=== PATIENT | female | born 1995 | race Caucasian/White ===

== ENCOUNTER 2016-09-27 11:48 | Inpatient (IN) | payer MEDICAID ==
[~2016-09-27] VITALS: Ht 147.3 cm; Wt 51.0 kg
[2016-09-27] VITALS (7 sets, daily range): BP systolic 118–149; BP diastolic 59–87
[~2016-09-27 11:48] MED LIST: LEVA0.6310; MUPI2OIN10; NUTREN
[2016-09-27] MEDS ORDERED: ALBUTEROL SULF 2.5 MG/0.5ML(0.5%) NEB SOLN NEB ONE (15:45)
[2016-09-27] MEDS ORDERED: IPRATROPIUM BROM 0.5 MG/2.5ML INH SOL NEB ONE (15:45)
[2016-09-27 17:22] LABS: Basophils # (auto) 0 uL; Basophils % (auto) 0.2 % (0.0-2.0); Eosinophils # (auto) 0.1 uL; Eosinophils % (auto) 1.4 % (0.0-7.0); Hematocrit 43.1 % (36.0-46.0); Lymphocytes % (auto) 11.5 % (10.0-50.0); Mean Corpuscular Hemoglobin 31.1 pg (28.0-32.0); Mean Corpuscular Hgb Conc. 32.5 g/dL (32.0-36.0); Mean Corpuscular Volume 95.6 fL (80.0-100.0); Monocytes # (auto) 0.9 uL; Monocytes % (auto) 10.6 % (0.0-12.0); Neutrophils # (auto) 6.4 uL; Neutrophils % (auto) 76.3 % (37.0-80.0); Platelet Count (auto) 235 10^3/uL (140-450); Red Cell Distribution Width 13.3 % (11.6-16.0); White Blood Cell 8.4 10^3/uL (4.4-10.8)
[2016-09-27 17:35] LABS: INR 1.06 (0.9-1.15); Partial Thromboplastin Time 29.6 sec (22.64-33.71); Prothrombin Time 10.9 sec (9.37-12.3)
[2016-09-27 17:38] LABS: Albumin 3.9 g/dL (3.4-5.0); Magnesium 2.3 mg/dL (1.6-2.6); Potassium 3.5 mmol/L (3.5-5.1)
[2016-09-27 17:40] LABS: Bilirubin, Total 0.6 mg/dL (0.2-1.0); Total Protein 8.5 g/dL (6.4-8.2)
[2016-09-27 17:44] LABS: Lactic Acid 4.8 mmol/L (0.4-2.0)
[2016-09-27] MEDS ORDERED: SODIUM CHLORIDE 0.9% 1,000 ML IV ONE (17:45)
[2016-09-27 17:48] LABS: REFLEX LACTIC ACID YES OR NO YES
[2016-09-27] MEDS ORDERED: cefTRIAXone 1GM/50ML D5W 50 ML IV ONE (18:15)
[2016-09-27] MEDS ORDERED: LORazepam 2MG/ML-1ML VIAL IV PRN (18:15)
[2016-09-27] MEDS ORDERED: MORPHINE SULF INJ 2 MG/ML SYRINGE 1ML IV PRN ×2 (18:15)
[2016-09-27] MEDS ORDERED: LACTULOSE 20Gm/30ML SOLN PO PRN (18:15)
[2016-09-27] MEDS ORDERED: OSELTAMIVIR 75 MG CAP PO ONE (18:15)
[2016-09-27] MEDS ORDERED: ALBUTEROL SULF 2.5 MG/0.5ML(0.5%) NEB SOLN NEB PRN (18:15)
[2016-09-27] MEDS ORDERED: ONDANSETRON HCL 4 MG/2 ML VIAL IV PRN (18:15)
[2016-09-27] MEDS ORDERED: NITROGLYCERIN 0.4 MG SL TAB SL PRN (18:15)
[2016-09-27] MEDS ORDERED: methylPREDNISolone SOD SUCC 125 MG/2 ML VL IV ONE (18:30)
[2016-09-27 18:56] LABS: Urine Bilirubin Negative (Negative); Urine Blood Negative /uL (Negative); Urine Color Yellow (Yellow); Urine Glucose Normal (Normal); Urine Mucus FEW (None Seen); Urine Nitrite Negative (Negative); Urine RBC 1 /hpf (0 - 4); Urine Squamous Epithelial Cell FEW /hpf (<5); Urine Urobilinogen >12.0 mg/dL (Negative); Urine pH 7.5 (5.0-8.0)
[2016-09-27] MEDS: ENOXAPARIN SOD 30 MG/0.3 ML SYRINGE SC SCH (19:01)
[2016-09-27 19:14] LABS: Urine Ketone 1+ (Negative)
[2016-09-27] MEDS: AZITHROMYCIN 500MG/D5W 250ML 250 ML IV SCH (20:23)
[2016-09-28] VITALS (38 sets, daily range): BP systolic 107–163; BP diastolic 57–93
[2016-09-28] MEDS: SODIUM CHLORIDE 0.9% 1,000 ML IV SCH ×2 (00:15→18:02)
[2016-09-28] MEDS: methylPREDNISolone SOD SUCC 40 MG/ML VL IV SCH ×4 (00:16→22:53)
[2016-09-28] MEDS: ALBUTEROL SULF 2.5 MG/0.5ML(0.5%) NEB SOLN NEB SCH ×4 (01:22→18:40)
[2016-09-28 04:05] LABS: Basophils # (auto) 0 uL; Basophils % (auto) 0.3 % (0.0-2.0); Eosinophils # (auto) 0 uL; Eosinophils % (auto) 0.1 % (0.0-7.0); Hematocrit 39.5 % (36.0-46.0); Hemoglobin 12.8 g/dL (12.2-16.2); Lymphocytes # (auto) 0.3 uL; Lymphocytes % (auto) 4.9 % (10.0-50.0); Mean Corpuscular Hemoglobin 31.1 pg (28.0-32.0); Mean Corpuscular Hgb Conc. 32.4 g/dL (32.0-36.0); Mean Corpuscular Volume 96.1 fL (80.0-100.0); Mean Platelet Volume 10.7 fL (7.4-10.4); Monocytes # (auto) 0.1 uL; Monocytes % (auto) 2.3 % (0.0-12.0); Neutrophils % (auto) 92.4 % (37.0-80.0); Platelet Count (auto) 218 10^3/uL (140-450); Red Cell Distribution Width 13.2 % (11.6-16.0); White Blood Cell 5.4 10^3/uL (4.4-10.8)
[2016-09-28 04:18] LABS: Albumin 3.1 g/dL (3.4-5.0); Calcium 7.9 mg/dL (8.5-10.1)
[2016-09-28 04:35] LABS: Bilirubin, Total 0.4 mg/dL (0.2-1.0)
[2016-09-28] MEDS ORDERED: SODIUM CHLORIDE 0.9 % NEB SOLN 3ML NEB ONE (05:30)
[2016-09-28] MEDS ORDERED: OSELTAMIVIR 75 MG CAP PO SCH (10:00)
[2016-09-28] MEDS: cefTRIAXone 1GM/50ML D5W 50 ML IV SCH (10:37)
[2016-09-28] MEDS: ENOXAPARIN SOD 30 MG/0.3 ML SYRINGE SC SCH (10:42)
[2016-09-28] MEDS: AZITHROMYCIN 500MG/D5W 250ML 250 ML IV SCH (10:43)
[2016-09-28] MEDS ORDERED: Nutren 1.0/Fiber 8 ounces GT SCH (15:15)
[2016-09-28] MEDS: NUTREN GT SCH (21:57)
[2016-09-29] MEDS: ALBUTEROL SULF 2.5 MG/0.5ML(0.5%) NEB SOLN NEB SCH ×4 (00:40→19:10)
[2016-09-29] MEDS ORDERED: FUROSEMIDE 40 MG/4 ML VIAL ONE (00:56)
[2016-09-29] MEDS ORDERED: FUROSEMIDE 40 MG/4 ML VIAL IV ONE ×2 (01:00→09:30)
[2016-09-29 04:00] VITALS: BP 126/76
[2016-09-29 06:19] LABS: DEFINITIVE VIEW TRANSMISSION; Hematocrit 41.9 % (36.0-46.0); Hemoglobin 13.7 g/dL (12.2-16.2); Mean Corpuscular Hemoglobin 31.5 pg (28.0-32.0); Mean Corpuscular Hgb Conc. 32.7 g/dL (32.0-36.0); Mean Corpuscular Volume 96.1 fL (80.0-100.0); Mean Platelet Volume 10.7 fL (7.4-10.4); Platelet Count (auto) 279 10^3/uL (140-450); Red Cell Distribution Width 13.3 % (11.6-16.0); SUSPECT VIEW TRANSMISSION; White Blood Cell 7.9 10^3/uL (4.4-10.8)
[2016-09-29 06:36] LABS: Potassium 3.3 mmol/L (3.5-5.1)
[2016-09-29 06:42] LABS: BUN/Creatinine Ratio 37.9; Calcium 9.1 mg/dL (8.5-10.1)
[2016-09-29 07:19] LABS: Metamyelocytes % 0; Myelocytes % 0; Promyelocytes % 0; Reactive Lymphocytes 0
[2016-09-29 07:25] LABS: B-Type Natriuretic Peptide 75.48 pg/mL (0-100)
[2016-09-29] MEDS: SODIUM CHLORIDE 0.9% 1,000 ML IV SCH (07:33)
[2016-09-29 07:35] LABS: Temperature: 22.4 C (20.0-25.0)
[2016-09-29 07:59] VITALS: BP 128/71
[2016-09-29 08:02] LABS: Platelet Estimate Adequate; RBC Morphology Normal
[2016-09-29] MEDS: cefTRIAXone 1GM/50ML D5W 50 ML IV SCH (08:47)
[2016-09-29] MEDS ORDERED: POTASSIUM CHL 10% (20 MEQ/15ML) ORAL SOLN PEG ONE (09:30)
[2016-09-29] MEDS: methylPREDNISolone SOD SUCC 40 MG/ML VL IV SCH ×2 (10:17→22:56)
[2016-09-29] MEDS: AZITHROMYCIN 500MG/D5W 250ML 250 ML IV SCH (10:17)
[2016-09-29] MEDS: ENOXAPARIN SOD 30 MG/0.3 ML SYRINGE SC SCH (10:17)
[2016-09-29 12:00] VITALS: BP 119/77
[2016-09-29] MEDS ORDERED: SODIUM CHLORIDE 0.9% 1,000 ML IV SCH (15:01)
[2016-09-29 16:00] VITALS: BP 121/74
[2016-09-29] MEDS ORDERED: DEXTROSE (50%) 50ML SYRG IV PRN (16:00)
[2016-09-29] MEDS ORDERED: InsuLIN REG 1unit/0.01ml Soln (100units/ml) SC SCH (16:00)
[2016-09-29] MEDS ORDERED: POTASSIUM CHL 20MEQ/100ML 100 ML IV ONE (16:00)
[2016-09-29] MEDS: NUTREN GT SCH (17:23)
[2016-09-29] MEDS: ACCU-CHEK COMFORT CURVE STRIP VI SCH ×2 (18:10→22:00)
[2016-09-29 20:00] VITALS: BP 132/80
[2016-09-29] MEDS: InsuLIN REG 1unit/0.01ml Soln (100units/ml) SC SCH (22:00)
[2016-09-30] VITALS (7 sets, daily range): BP systolic 121–141; BP diastolic 67–75
[2016-09-30] MEDS: ALBUTEROL SULF 2.5 MG/0.5ML(0.5%) NEB SOLN NEB SCH ×2 (00:30→06:45)
[2016-09-30] MEDS ORDERED: FUROSEMIDE 20 MG/2 ML VIAL IV ONE (05:00)
[2016-09-30 06:12] LABS: Basophils # (auto) 0 uL; DEFINITIVE VIEW TRANSMISSION; Eosinophils # (auto) 0 uL; Hematocrit 48.4 % (36.0-46.0); Hemoglobin 15.1 g/dL (12.2-16.2); Lymphocytes # (auto) 0.4 uL; Lymphocytes % (auto) 5.4 % (10.0-50.0); Mean Corpuscular Hemoglobin 30.6 pg (28.0-32.0); Mean Corpuscular Hgb Conc. 31.2 g/dL (32.0-36.0); Mean Corpuscular Volume 97.9 fL (80.0-100.0); Mean Platelet Volume 10.5 fL (7.4-10.4); Monocytes # (auto) 0.7 uL; Monocytes % (auto) 9.6 % (0.0-12.0); Neutrophils # (auto) 6.4 uL; Platelet Count (auto) 275 10^3/uL (140-450); Red Cell Distribution Width 13.9 % (11.6-16.0); SUSPECT VIEW TRANSMISSION; White Blood Cell 7.5 10^3/uL (4.4-10.8)
[2016-09-30 06:38] LABS: BUN/Creatinine Ratio 47.5; Calcium 9.1 mg/dL (8.5-10.1)
[2016-09-30] MEDS: ACCU-CHEK COMFORT CURVE STRIP VI SCH ×3 (08:03→22:00)
[2016-09-30] MEDS: cefTRIAXone 1GM/50ML D5W 50 ML IV SCH (08:28)
[2016-09-30] MEDS: InsuLIN REG 1unit/0.01ml Soln (100units/ml) SC SCH ×3 (08:29→22:00)
[2016-09-30] MEDS ORDERED: ALBUTEROL SULF 2.5 MG/0.5ML(0.5%) NEB SOLN NEB PRN (09:15)
[2016-09-30] MEDS: methylPREDNISolone SOD SUCC 40 MG/ML VL IV SCH ×2 (09:46→23:31)
[2016-09-30] MEDS: BACLOFEN 10 MG TAB PO SCH ×2 (09:46→23:31)
[2016-09-30] MEDS: FUROSEMIDE 40 MG/4 ML VIAL IV SCH (09:46)
[2016-09-30] MEDS: ENOXAPARIN SOD 30 MG/0.3 ML SYRINGE SC SCH (09:46)
[2016-09-30] MEDS: AZITHROMYCIN 500MG/D5W 250ML 250 ML IV SCH (09:46)
[2016-09-30] MEDS ORDERED: LEVALBUTEROL HCL 1.25 MG/0.5 ML NEB SOLN NEB PRN (10:42)
[2016-09-30] MEDS ORDERED: LEVALBUTEROL HCL 1.25 MG/0.5 ML NEB SOLN NEB SCH (12:00)
[2016-09-30] MEDS: ACETAMINOPHEN 650 mg PER 20 mL UD GT PRN (16:13)
[2016-09-30] MEDS: LEVALBUTEROL HCL 1.25 MG/0.5 ML NEB SOLN NEB SCH (22:21)
[2016-10-01 00:28] VITALS: BP 125/77
[2016-10-01 04:00] VITALS: BP 148/83
[2016-10-01] MEDS: ACETAMINOPHEN 650 mg PER 20 mL UD GT PRN (04:15)
[2016-10-01 06:24] LABS: BUN/Creatinine Ratio 57.4; Calcium 9.5 mg/dL (8.5-10.1); Potassium 3.9 mmol/L (3.5-5.1)
[2016-10-01] MEDS: InsuLIN REG 1unit/0.01ml Soln (100units/ml) SC SCH ×3 (07:00→21:53)
[2016-10-01 08:00] VITALS: BP 133/75
[2016-10-01] MEDS: cefTRIAXone 1GM/50ML D5W 50 ML IV SCH (09:01)
[2016-10-01] MEDS: LEVALBUTEROL HCL 1.25 MG/0.5 ML NEB SOLN NEB SCH ×2 (09:16→22:34)
[2016-10-01] MEDS: FUROSEMIDE 40 MG/4 ML VIAL IV SCH (11:11)
[2016-10-01] MEDS: methylPREDNISolone SOD SUCC 40 MG/ML VL IV SCH ×2 (11:12→22:00)
[2016-10-01] MEDS: AZITHROMYCIN 500MG/D5W 250ML 250 ML IV SCH (11:12)
[2016-10-01] MEDS: ENOXAPARIN SOD 30 MG/0.3 ML SYRINGE SC SCH (11:12)
[2016-10-01] MEDS: BACLOFEN 10 MG TAB PO SCH ×2 (11:12→22:00)
[2016-10-01 12:00] VITALS: BP 111/61
[2016-10-01] MEDS: ACCU-CHEK COMFORT CURVE STRIP VI SCH ×2 (14:00→21:53)
[2016-10-01] MEDS: NUTREN GT SCH (17:42)
[2016-10-01 20:00] VITALS: BP 145/84
[2016-10-02] VITALS: BP 116/68
[2016-10-02 04:00] VITALS: BP 132/79
[2016-10-02] MEDS ORDERED: LEVALBUTEROL HCL 1.25 MG/3 ML NEB NEB SCH (06:00)
[2016-10-02] MEDS: InsuLIN REG 1unit/0.01ml Soln (100units/ml) SC SCH ×3 (06:00→22:00)
[2016-10-02] MEDS: ACCU-CHEK COMFORT CURVE STRIP VI SCH ×3 (06:00→22:00)
[2016-10-02 08:00] VITALS: BP 114/68
[2016-10-02] MEDS: methylPREDNISolone SOD SUCC 40 MG/ML VL IV SCH ×2 (10:19→22:13)
[2016-10-02] MEDS: BACLOFEN 10 MG TAB PO SCH ×2 (10:19→22:15)
[2016-10-02] MEDS: ENOXAPARIN SOD 30 MG/0.3 ML SYRINGE SC SCH (10:20)
[2016-10-02] MEDS: cefTRIAXone 1GM/50ML D5W 50 ML IV SCH (10:20)
[2016-10-02] MEDS: FUROSEMIDE 40 MG/4 ML VIAL IV SCH (10:21)
[2016-10-02] MEDS: AZITHROMYCIN 500MG/D5W 250ML 250 ML IV SCH (11:13)
[2016-10-02 12:00] VITALS: BP 123/77
[2016-10-02] MEDS ORDERED: PIPERACILLIN-TAZOB 3.375GM/D5W100ML IV SCH (12:00)
[2016-10-02] MEDS ORDERED: ACETYLCYSTEINE 10 %(100MG/ML) SOL 4ML NEB ONE (12:00)
[2016-10-02] MEDS: PIPERACILLIN-TAZOB 3.375GM/D5W100ML IV SCH ×2 (14:00→20:40)
[2016-10-02 15:58] VITALS: BP 117/66
[2016-10-02] MEDS: NUTREN GT SCH (17:12)
[2016-10-02 20:00] VITALS: BP 140/87
[2016-10-02] MEDS: ACETYLCYSTEINE 10 %(100MG/ML) SOL 4ML NEB SCH (22:58)
[2016-10-02] MEDS: TOBRAMYCIN 300 MG/5 ML NEB SOLN NEB SCH (22:59)
[2016-10-02] MEDS: LEVALBUTEROL HCL 1.25 MG/3 ML NEB NEB SCH (22:59)
[2016-10-03] VITALS: BP 113/83
[2016-10-03] MEDS: PIPERACILLIN-TAZOB 3.375GM/D5W100ML IV SCH ×4 (03:17→20:24)
[2016-10-03 04:00] VITALS: BP 133/74
[2016-10-03] MEDS: ACCU-CHEK COMFORT CURVE STRIP VI SCH ×3 (06:00→22:00)
[2016-10-03] MEDS: InsuLIN REG 1unit/0.01ml Soln (100units/ml) SC SCH ×3 (06:00→22:45)
[2016-10-03 06:09] LABS: BUN/Creatinine Ratio 83.8; Calcium 9.5 mg/dL (8.5-10.1); Potassium 3.5 mmol/L (3.5-5.1)
[2016-10-03 06:13] LABS: Basophils # (auto) 0 uL; Basophils % (auto) 0.2 % (0.0-2.0); DEFINITIVE VIEW TRANSMISSION; Eosinophils # (auto) 0 uL; Hematocrit 48.6 % (36.0-46.0); Lymphocytes # (auto) 1.4 uL; Lymphocytes % (auto) 22.1 % (10.0-50.0); Mean Corpuscular Hemoglobin 30.6 pg (28.0-32.0); Mean Corpuscular Hgb Conc. 30.8 g/dL (32.0-36.0); Mean Corpuscular Volume 99.3 fL (80.0-100.0); Mean Platelet Volume 10.6 fL (7.4-10.4); Monocytes # (auto) 0.9 uL; Monocytes % (auto) 13.9 % (0.0-12.0); Neutrophils # (auto) 4.1 uL; Neutrophils % (auto) 63.8 % (37.0-80.0); Platelet Count (auto) 270 10^3/uL (140-450); White Blood Cell 6.4 10^3/uL (4.4-10.8)
[2016-10-03 08:00] VITALS: BP 128/79
[2016-10-03] MEDS: ACETYLCYSTEINE 10 %(100MG/ML) SOL 4ML NEB SCH ×2 (09:55→22:50)
[2016-10-03] MEDS: LEVALBUTEROL HCL 1.25 MG/3 ML NEB NEB SCH ×2 (09:55→22:50)
[2016-10-03] MEDS: TOBRAMYCIN 300 MG/5 ML NEB SOLN NEB SCH ×2 (09:56→22:51)
[2016-10-03] MEDS: FUROSEMIDE 40 MG/4 ML VIAL IV SCH (10:02)
[2016-10-03] MEDS: methylPREDNISolone SOD SUCC 40 MG/ML VL IV SCH ×2 (10:02→22:45)
[2016-10-03] MEDS: BACLOFEN 10 MG TAB PO SCH ×2 (10:03→22:45)
[2016-10-03] MEDS: ENOXAPARIN SOD 30 MG/0.3 ML SYRINGE SC SCH (10:03)
[2016-10-03 12:00] VITALS: BP 115/67
[2016-10-03] MEDS: ACETAMINOPHEN 650 mg PER 20 mL UD GT PRN (12:49)
[2016-10-03 16:00] VITALS: BP 113/68
[2016-10-03 20:00] VITALS: BP 115/64
[2016-10-04] VITALS (7 sets, daily range): BP systolic 108–132; BP diastolic 63–87
[2016-10-04] MEDS: PIPERACILLIN-TAZOB 3.375GM/D5W100ML IV SCH ×4 (02:22→19:48)
[2016-10-04] MEDS: InsuLIN REG 1unit/0.01ml Soln (100units/ml) SC SCH ×3 (06:00→22:38)
[2016-10-04] MEDS: ACCU-CHEK COMFORT CURVE STRIP VI SCH ×3 (06:00→21:54)
[2016-10-04] MEDS: ACETYLCYSTEINE 10 %(100MG/ML) SOL 4ML NEB SCH ×2 (07:35→22:08)
[2016-10-04] MEDS: LEVALBUTEROL HCL 1.25 MG/3 ML NEB NEB SCH ×2 (07:35→22:08)
[2016-10-04] MEDS: ENOXAPARIN SOD 30 MG/0.3 ML SYRINGE SC SCH (11:25)
[2016-10-04] MEDS: methylPREDNISolone SOD SUCC 40 MG/ML VL IV SCH ×2 (11:25→21:53)
[2016-10-04] MEDS: BACLOFEN 10 MG TAB PO SCH ×2 (11:25→21:54)
[2016-10-04] MEDS: TOBRAMYCIN 300 MG/5 ML NEB SOLN NEB SCH ×2 (15:25→22:08)
[2016-10-04] MEDS: NUTREN GT SCH (18:26)
[2016-10-05 00:15] VITALS: BP 112/58
[2016-10-05] MEDS: PIPERACILLIN-TAZOB 3.375GM/D5W100ML IV SCH ×4 (01:27→20:28)
[2016-10-05 04:00] VITALS: BP 111/64
[2016-10-05] MEDS: ACETYLCYSTEINE 10 %(100MG/ML) SOL 4ML NEB SCH ×2 (05:45→22:40)
[2016-10-05] MEDS: TOBRAMYCIN 300 MG/5 ML NEB SOLN NEB SCH ×2 (05:45→22:41)
[2016-10-05] MEDS: LEVALBUTEROL HCL 1.25 MG/3 ML NEB NEB SCH ×2 (05:45→22:40)
[2016-10-05] MEDS: ACCU-CHEK COMFORT CURVE STRIP VI SCH ×3 (05:53→21:20)
[2016-10-05] MEDS: InsuLIN REG 1unit/0.01ml Soln (100units/ml) SC SCH ×3 (06:00→22:00)
[2016-10-05 06:57] LABS: BUN/Creatinine Ratio 65.1; Calcium 8.9 mg/dL (8.5-10.1); Potassium 3.7 mmol/L (3.5-5.1)
[2016-10-05 07:17] LABS: Basophils # (auto) 0 uL; Basophils % (auto) 0.2 % (0.0-2.0); DEFINITIVE VIEW TRANSMISSION; Eosinophils # (auto) 0 uL; Eosinophils % (auto) 0.2 % (0.0-7.0); Hematocrit 46.8 % (36.0-46.0); Lymphocytes # (auto) 1.3 uL; Lymphocytes % (auto) 16.2 % (10.0-50.0); Mean Corpuscular Hemoglobin 30.1 pg (28.0-32.0); Mean Corpuscular Volume 100.4 fL (80.0-100.0); Mean Platelet Volume 10.9 fL (7.4-10.4); Monocytes # (auto) 0.7 uL; Monocytes % (auto) 8.6 % (0.0-12.0); Neutrophils # (auto) 5.9 uL; Neutrophils % (auto) 74.8 % (37.0-80.0); Platelet Count (auto) 281 10^3/uL (140-450); Red Cell Distribution Width 14.1 % (11.6-16.0); SUSPECT VIEW TRANSMISSION; White Blood Cell 7.9 10^3/uL (4.4-10.8)
[2016-10-05 08:00] VITALS: BP 108/63
[2016-10-05] MEDS: methylPREDNISolone SOD SUCC 40 MG/ML VL IV SCH ×2 (10:54→21:20)
[2016-10-05] MEDS: ENOXAPARIN SOD 30 MG/0.3 ML SYRINGE SC SCH (10:54)
[2016-10-05] MEDS: BACLOFEN 10 MG TAB PO SCH ×2 (10:54→21:20)
[2016-10-05 12:08] VITALS: BP 109/60
[2016-10-05 15:50] VITALS: BP 125/83
[2016-10-05 20:23] VITALS: BP 111/65
[2016-10-06] VITALS (9 sets, daily range): BP systolic 103–137; BP diastolic 53–70
[2016-10-06] MEDS: PIPERACILLIN-TAZOB 3.375GM/D5W100ML IV SCH ×4 (01:19→20:00)
[2016-10-06] MEDS: ACCU-CHEK COMFORT CURVE STRIP VI SCH ×3 (05:35→21:55)
[2016-10-06] MEDS: InsuLIN REG 1unit/0.01ml Soln (100units/ml) SC SCH ×3 (06:00→21:59)
[2016-10-06 07:09] LABS: BUN/Creatinine Ratio 93.9; Potassium 3.6 mmol/L (3.5-5.1)
[2016-10-06] MEDS: TOBRAMYCIN 300 MG/5 ML NEB SOLN NEB SCH ×2 (08:46→20:38)
[2016-10-06] MEDS: ACETYLCYSTEINE 10 %(100MG/ML) SOL 4ML NEB SCH ×2 (08:57→20:37)
[2016-10-06] MEDS: LEVALBUTEROL HCL 1.25 MG/3 ML NEB NEB SCH ×2 (08:57→20:37)
[2016-10-06] MEDS: ENOXAPARIN SOD 30 MG/0.3 ML SYRINGE SC SCH (10:07)
[2016-10-06] MEDS: methylPREDNISolone SOD SUCC 40 MG/ML VL IV SCH ×2 (10:07→21:55)
[2016-10-06] MEDS: BACLOFEN 10 MG TAB PO SCH ×2 (10:07→21:55)
[2016-10-06] MEDS ORDERED: MORPHINE SULF INJ 2 MG/ML SYRINGE 1ML IV PRN (13:45)
[2016-10-06] MEDS ORDERED: LORazepam 2MG/ML-1ML VIAL IV PRN (13:45)
[2016-10-06] MEDS: ACETAMINOPHEN 650 mg PER 20 mL UD GT PRN (13:55)
[2016-10-06] MEDS: NUTREN GT SCH (17:00)
[2016-10-07] VITALS (8 sets, daily range): BP systolic 97–120; BP diastolic 52–67
[2016-10-07] MEDS: PIPERACILLIN-TAZOB 3.375GM/D5W100ML IV SCH ×4 (02:02→18:22)
[2016-10-07] MEDS: InsuLIN REG 1unit/0.01ml Soln (100units/ml) SC SCH ×3 (05:22→22:00)
[2016-10-07] MEDS: ACCU-CHEK COMFORT CURVE STRIP VI SCH ×3 (05:22→22:36)
[2016-10-07 06:34] LABS: BUN/Creatinine Ratio 81.6; Calcium 8.8 mg/dL (8.5-10.1); Potassium 3.6 mmol/L (3.5-5.1)
[2016-10-07] MEDS: ENOXAPARIN SOD 30 MG/0.3 ML SYRINGE SC SCH (09:55)
[2016-10-07] MEDS: BACLOFEN 10 MG TAB PO SCH ×2 (09:55→22:36)
[2016-10-07] MEDS: methylPREDNISolone SOD SUCC 40 MG/ML VL IV SCH (09:55)
[2016-10-07] MEDS: LEVALBUTEROL HCL 1.25 MG/3 ML NEB NEB SCH ×2 (10:12→22:14)
[2016-10-07] MEDS: ACETYLCYSTEINE 10 %(100MG/ML) SOL 4ML NEB SCH ×2 (10:12→22:14)
[2016-10-07] MEDS: TOBRAMYCIN 300 MG/5 ML NEB SOLN NEB SCH ×2 (11:31→22:02)
[2016-10-07] MEDS: FREE WATER GT SCH ×3 (13:35→22:36)
[2016-10-07] MEDS: ACETAMINOPHEN 650 mg PER 20 mL UD GT PRN (18:22)
[2016-10-08 00:01] VITALS: BP 120/70
[2016-10-08] MEDS: FREE WATER GT SCH ×6 (02:04→21:46)
[2016-10-08] MEDS: PIPERACILLIN-TAZOB 3.375GM/D5W100ML IV SCH ×4 (02:05→20:59)
[2016-10-08 03:56] VITALS: BP 106/60
[2016-10-08 06:14] LABS: Basophils # (auto) 0 uL; Basophils % (auto) 0.4 % (0.0-2.0); Eosinophils # (auto) 0.1 uL; Eosinophils % (auto) 0.7 % (0.0-7.0); Hematocrit 42.5 % (36.0-46.0); Hemoglobin 13.2 g/dL (12.2-16.2); Lymphocytes # (auto) 3.3 uL; Lymphocytes % (auto) 29.3 % (10.0-50.0); Mean Corpuscular Hemoglobin 30.4 pg (28.0-32.0); Mean Corpuscular Volume 98.3 fL (80.0-100.0); Mean Platelet Volume 12.1 fL (7.4-10.4); Monocytes # (auto) 1.1 uL; Neutrophils # (auto) 6.7 uL; Neutrophils % (auto) 59.6 % (37.0-80.0); Platelet Count (auto) 229 10^3/uL (140-450); Red Cell Distribution Width 13.7 % (11.6-16.0); SUSPECT VIEW TRANSMISSION; White Blood Cell 11.3 10^3/uL (4.4-10.8)
[2016-10-08 06:17] LABS: BUN/Creatinine Ratio 88.6; Calcium 8.5 mg/dL (8.5-10.1); Potassium 3.2 mmol/L (3.5-5.1)
[2016-10-08] MEDS: ACCU-CHEK COMFORT CURVE STRIP VI SCH ×3 (07:31→21:46)
[2016-10-08] MEDS: InsuLIN REG 1unit/0.01ml Soln (100units/ml) SC SCH ×3 (07:35→21:46)
[2016-10-08 08:00] VITALS: BP 120/62
[2016-10-08] MEDS: BACLOFEN 10 MG TAB PO SCH ×2 (09:44→21:46)
[2016-10-08] MEDS: ENOXAPARIN SOD 30 MG/0.3 ML SYRINGE SC SCH (09:45)
[2016-10-08] MEDS: LEVALBUTEROL HCL 1.25 MG/3 ML NEB NEB SCH ×2 (10:14→23:10)
[2016-10-08] MEDS: ACETYLCYSTEINE 10 %(100MG/ML) SOL 4ML NEB SCH ×2 (10:15→23:10)
[2016-10-08] MEDS: TOBRAMYCIN 300 MG/5 ML NEB SOLN NEB SCH ×2 (10:15→23:10)
[2016-10-08 12:00] VITALS: BP 123/71
[2016-10-08] MEDS ORDERED: POTASSIUM CHL 20 Meq TABLET PO ONE (13:15)
[2016-10-08] MEDS ORDERED: POTASSIUM CHL 10% (20 MEQ/15ML) ORAL SOLN PO ONE (15:00)
[2016-10-08 16:00] VITALS: BP 131/71
[2016-10-08] MEDS: NUTREN GT SCH (17:00)
[2016-10-08 20:00] VITALS: BP 124/87
[2016-10-09] VITALS: BP 148/50
[2016-10-09] MEDS: FREE WATER GT SCH ×4 (02:00→18:00)
[2016-10-09] MEDS: PIPERACILLIN-TAZOB 3.375GM/D5W100ML IV SCH ×4 (03:19→21:01)
[2016-10-09 04:00] VITALS: BP 128/73
[2016-10-09 05:10] LABS: Basophils # (auto) 0 uL; Basophils % (auto) 0.3 % (0.0-2.0); Eosinophils # (auto) 0.2 uL; Eosinophils % (auto) 1.9 % (0.0-7.0); Hematocrit 39.9 % (36.0-46.0); Hemoglobin 12.5 g/dL (12.2-16.2); Lymphocytes # (auto) 2.5 uL; Lymphocytes % (auto) 20.8 % (10.0-50.0); Mean Corpuscular Hemoglobin 30.6 pg (28.0-32.0); Mean Corpuscular Hgb Conc. 31.4 g/dL (32.0-36.0); Mean Corpuscular Volume 97.8 fL (80.0-100.0); Mean Platelet Volume 11.6 fL (7.4-10.4); Monocytes # (auto) 0.9 uL; Monocytes % (auto) 7.8 % (0.0-12.0); Neutrophils # (auto) 8.3 uL; Neutrophils % (auto) 69.2 % (37.0-80.0); Platelet Count (auto) 213 10^3/uL (140-450); Red Cell Distribution Width 13.7 % (11.6-16.0)
[2016-10-09 05:28] LABS: BUN/Creatinine Ratio 47.4; Calcium 8.3 mg/dL (8.5-10.1); Magnesium 2.5 mg/dL (1.6-2.6); Potassium 3.6 mmol/L (3.5-5.1)
[2016-10-09] MEDS: ACCU-CHEK COMFORT CURVE STRIP VI SCH ×3 (06:00→22:00)
[2016-10-09] MEDS: InsuLIN REG 1unit/0.01ml Soln (100units/ml) SC SCH ×3 (06:52→22:00)
[2016-10-09 08:04] VITALS: BP 125/72
[2016-10-09] MEDS ORDERED: ACETAMINOPHEN 650 mg PER 20 mL UD ONE (09:31)
[2016-10-09] MEDS: ENOXAPARIN SOD 30 MG/0.3 ML SYRINGE SC SCH (09:38)
[2016-10-09] MEDS: ACETAMINOPHEN 650 mg PER 20 mL UD GT PRN ×2 (09:38→19:21)
[2016-10-09] MEDS: BACLOFEN 10 MG TAB PO SCH ×2 (09:38→22:28)
[2016-10-09] MEDS: LEVALBUTEROL HCL 1.25 MG/3 ML NEB NEB SCH ×2 (10:52→20:01)
[2016-10-09] MEDS: TOBRAMYCIN 300 MG/5 ML NEB SOLN NEB SCH ×2 (10:53→20:02)
[2016-10-09] MEDS: ACETYLCYSTEINE 10 %(100MG/ML) SOL 4ML NEB SCH ×2 (10:53→20:01)
[2016-10-09 11:55] VITALS: BP 138/69
[2016-10-09] MEDS ORDERED: SOD CHL 0.45% 1,000 ML IV ONE (12:00)
[2016-10-09] MEDS ORDERED: POTASSIUM CHL 10% (20 MEQ/15ML) ORAL SOLN GT ONE (12:00)
[2016-10-09 16:02] VITALS: BP 140/88
[2016-10-09 20:00] VITALS: BP 125/74
[2016-10-10] VITALS (7 sets, daily range): BP systolic 126–146; BP diastolic 69–82
[2016-10-10] MEDS: PIPERACILLIN-TAZOB 3.375GM/D5W100ML IV SCH ×4 (02:10→21:03)
[2016-10-10] MEDS: ACETAMINOPHEN 650 mg PER 20 mL UD GT PRN (05:02)
[2016-10-10] MEDS: InsuLIN REG 1unit/0.01ml Soln (100units/ml) SC SCH ×3 (06:00→22:22)
[2016-10-10] MEDS: ACCU-CHEK COMFORT CURVE STRIP VI SCH ×3 (06:00→22:20)
[2016-10-10] MEDS: FREE WATER GT SCH ×4 (06:00→18:00)
[2016-10-10] MEDS: BACLOFEN 10 MG TAB PO SCH ×2 (09:55→21:03)
[2016-10-10] MEDS: ENOXAPARIN SOD 30 MG/0.3 ML SYRINGE SC SCH (09:55)
[2016-10-10] MEDS: ACETYLCYSTEINE 10 %(100MG/ML) SOL 4ML NEB SCH ×2 (10:10→20:50)
[2016-10-10] MEDS: TOBRAMYCIN 300 MG/5 ML NEB SOLN NEB SCH ×2 (10:11→20:50)
[2016-10-10] MEDS: LEVALBUTEROL HCL 1.25 MG/3 ML NEB NEB SCH ×2 (10:11→20:50)
[2016-10-10] MEDS ORDERED: FUROSEMIDE 40 MG/4 ML VIAL IV ONE (11:15)
[2016-10-10] MEDS ORDERED: IOHEXOL 350 MG/ML 100ML IJ ONE (13:00)
[2016-10-11] VITALS: BP 134/93
[2016-10-11] MEDS: PIPERACILLIN-TAZOB 3.375GM/D5W100ML IV SCH ×2 (02:30→08:00)
[2016-10-11 04:00] VITALS: BP 131/75
[2016-10-11] MEDS: ACETAMINOPHEN 650 mg PER 20 mL UD GT PRN ×3 (04:34→20:57)
[2016-10-11] MEDS ORDERED: METOPROLOL TARTRATE 1MG/1ML-5ML VIAL IV ONE ×2 (05:51→06:00)
[2016-10-11] MEDS ORDERED: FUROSEMIDE 20 MG/2 ML VIAL ONE (05:52)
[2016-10-11 05:58] LABS: Hematocrit 44.7 % (36.0-46.0); Hemoglobin 14.4 g/dL (12.2-16.2); Mean Corpuscular Hemoglobin 31.3 pg (28.0-32.0); Mean Corpuscular Hgb Conc. 32.2 g/dL (32.0-36.0); Mean Corpuscular Volume 97.1 fL (80.0-100.0); Mean Platelet Volume 12.6 fL (7.4-10.4); Platelet Count (auto) 341 10^3/uL (140-450); SUSPECT VIEW TRANSMISSION
[2016-10-11] MEDS ORDERED: FUROSEMIDE 20 MG/2 ML VIAL IV ONE (06:00)
[2016-10-11] MEDS: FREE WATER GT SCH ×5 (06:00→23:26)
[2016-10-11] MEDS: ACCU-CHEK COMFORT CURVE STRIP VI SCH ×3 (06:00→21:16)
[2016-10-11] MEDS: InsuLIN REG 1unit/0.01ml Soln (100units/ml) SC SCH ×3 (06:00→22:00)
[2016-10-11 06:11] LABS: Promyelocytes % 0; Reactive Lymphocytes 0
[2016-10-11 06:14] LABS: BUN/Creatinine Ratio 33.9; Calcium 8.6 mg/dL (8.5-10.1); Magnesium 2.7 mg/dL (1.6-2.6)
[2016-10-11] MEDS: LEVALBUTEROL HCL 1.25 MG/3 ML NEB NEB SCH ×2 (07:39→22:20)
[2016-10-11] MEDS: ACETYLCYSTEINE 10 %(100MG/ML) SOL 4ML NEB SCH ×2 (07:39→22:20)
[2016-10-11] MEDS: TOBRAMYCIN 300 MG/5 ML NEB SOLN NEB SCH (07:40)
[2016-10-11 08:00] VITALS: BP 124/72
[2016-10-11 08:57] LABS: Giant Platelets Few; Metamyelocytes % 1; Myelocytes % 1; Platelet Estimate Adequate; Stomatocytes Moderate
[2016-10-11] MEDS: BACLOFEN 10 MG TAB PO SCH ×2 (10:00→22:40)
[2016-10-11] MEDS: ENOXAPARIN SOD 30 MG/0.3 ML SYRINGE SC SCH (10:00)
[2016-10-11] MEDS ORDERED: ONDANSETRON HCL 4 MG/2 ML VIAL IV PRN (10:15)
[2016-10-11] MEDS ORDERED: LACTULOSE 20Gm/30ML SOLN PO PRN (10:15)
[2016-10-11] MEDS ORDERED: MEROPENEM 500MG IVPB 100 ML IV ONE (10:30)
[2016-10-11 12:00] VITALS: BP 110/75
[2016-10-11] MEDS ORDERED: LINEZOLID 600MG/300ML 300 ML IV ONE (12:30)
[2016-10-11 13:43] LABS: Urine Bilirubin Negative (Negative); Urine Color Yellow (Yellow); Urine Glucose Normal (Normal); Urine Ketone TRACE (Negative); Urine Nitrite Negative (Negative); Urine RBC 598 /hpf (0 - 4); Urine Squamous Epithelial Cell FEW /hpf (<5); Urine Urobilinogen Normal (Negative); Urine pH 6.5 (5.0-8.0)
[2016-10-11 13:45] LABS: Urine Blood 2+ /uL (Negative)
[2016-10-11 16:00] VITALS: BP 120/72
[2016-10-11] MEDS: NUTREN GT SCH (17:00)
[2016-10-11 19:51] VITALS: BP 119/71
[2016-10-11] MEDS: LEVOFLOXACIN 500MG 100 ML IV SCH (20:56)
[2016-10-11] MEDS: IPRATROPIUM BROM 0.5 MG/2.5ML INH SOL NEB SCH (22:20)
[2016-10-11 22:29] LABS: B-Type Natriuretic Peptide 139.46 pg/mL (0-100); Temperature: 22.7 C (20.0-25.0)
[2016-10-11] MEDS: BUDESONIDE (INHALATION) 0.5 MG/2 ML NEB NEB SCH (22:36)
[2016-10-11] MEDS: MEROPENEM 500MG IVPB 100 ML IV SCH (22:40)
[2016-10-11] MEDS: methylPREDNISolone SOD SUCC 125 MG/2 ML VL IV SCH (22:40)
[2016-10-12] VITALS: BP 111/64
[2016-10-12] MEDS ORDERED: LINEZOLID 600MG/300ML 300 ML IV SCH
[2016-10-12 04:40] VITALS: BP 127/69
[2016-10-12] MEDS: ACCU-CHEK COMFORT CURVE STRIP VI SCH ×3 (05:42→22:15)
[2016-10-12] MEDS: InsuLIN REG 1unit/0.01ml Soln (100units/ml) SC SCH ×3 (05:51→22:18)
[2016-10-12] MEDS: methylPREDNISolone SOD SUCC 125 MG/2 ML VL IV SCH ×3 (05:53→21:17)
[2016-10-12] MEDS: MEROPENEM 500MG IVPB 100 ML IV SCH ×3 (05:53→21:16)
[2016-10-12] MEDS: FREE WATER GT SCH (05:53)
[2016-10-12 06:22] LABS: Basophils # (auto) 0 uL; Basophils % (auto) 0.2 % (0.0-2.0); Eosinophils # (auto) 0 uL; Eosinophils % (auto) 0.2 % (0.0-7.0); Hemoglobin 13.1 g/dL (12.2-16.2); Lymphocytes % (auto) 6.8 % (10.0-50.0); Mean Corpuscular Hemoglobin 32.7 pg (28.0-32.0); Mean Corpuscular Hgb Conc. 32.8 g/dL (32.0-36.0); Mean Corpuscular Volume 99.4 fL (80.0-100.0); Mean Platelet Volume 12.1 fL (7.4-10.4); Monocytes # (auto) 0.3 uL; Monocytes % (auto) 1.8 % (0.0-12.0); Neutrophils # (auto) 13.3 uL; Platelet Count (auto) 204 10^3/uL (140-450); Red Cell Distribution Width 14.1 % (11.6-16.0); SUSPECT VIEW TRANSMISSION; White Blood Cell 14.7 10^3/uL (4.4-10.8)
[2016-10-12] MEDS: BUDESONIDE (INHALATION) 0.5 MG/2 ML NEB NEB SCH ×2 (07:03→19:33)
[2016-10-12] MEDS: LEVALBUTEROL HCL 1.25 MG/3 ML NEB NEB SCH ×2 (07:03→19:34)
[2016-10-12] MEDS: IPRATROPIUM BROM 0.5 MG/2.5ML INH SOL NEB SCH ×2 (07:04→19:34)
[2016-10-12] MEDS: ACETYLCYSTEINE 10 %(100MG/ML) SOL 4ML NEB SCH ×2 (07:04→19:34)
[2016-10-12 08:00] VITALS: BP 123/85
[2016-10-12] MEDS: TOBRAMYCIN 300 MG/5 ML NEB SOLN NEB SCH (10:00)
[2016-10-12] MEDS: ENOXAPARIN SOD 30 MG/0.3 ML SYRINGE SC SCH (10:19)
[2016-10-12] MEDS: LEVOFLOXACIN 500MG 100 ML IV SCH (10:19)
[2016-10-12] MEDS: BACLOFEN 10 MG TAB PO SCH ×2 (10:20→21:17)
[2016-10-12] MEDS ORDERED: DEXTROSE (50%) 50ML SYRG IV PRN (10:30)
[2016-10-12 12:00] VITALS: BP 115/66
[2016-10-12 16:00] VITALS: BP 115/66
[2016-10-12] MEDS: NUTREN GT SCH (17:00)
[2016-10-12 20:00] VITALS: BP 121/71
[2016-10-13] VITALS (8 sets, daily range): BP systolic 113–133; BP diastolic 54–73
[2016-10-13] MEDS: MEROPENEM 500MG IVPB 100 ML IV SCH ×3 (05:01→21:39)
[2016-10-13] MEDS: methylPREDNISolone SOD SUCC 125 MG/2 ML VL IV SCH ×3 (05:01→21:38)
[2016-10-13] MEDS: ACCU-CHEK COMFORT CURVE STRIP VI SCH ×3 (05:12→22:07)
[2016-10-13] MEDS: InsuLIN REG 1unit/0.01ml Soln (100units/ml) SC SCH ×3 (06:22→22:01)
[2016-10-13] MEDS: ENOXAPARIN SOD 30 MG/0.3 ML SYRINGE SC SCH (09:51)
[2016-10-13] MEDS: LEVOFLOXACIN 500MG 100 ML IV SCH (09:51)
[2016-10-13] MEDS: BACLOFEN 10 MG TAB PO SCH ×2 (09:52→21:38)
[2016-10-13] MEDS: TOBRAMYCIN 300 MG/5 ML NEB SOLN NEB SCH (10:00)
[2016-10-13] MEDS: ACETYLCYSTEINE 10 %(100MG/ML) SOL 4ML NEB SCH ×2 (10:41→23:59)
[2016-10-13] MEDS: IPRATROPIUM BROM 0.5 MG/2.5ML INH SOL NEB SCH ×2 (10:41→23:59)
[2016-10-13] MEDS: LEVALBUTEROL HCL 1.25 MG/3 ML NEB NEB SCH ×2 (10:41→23:59)
[2016-10-13] MEDS: BUDESONIDE (INHALATION) 0.5 MG/2 ML NEB NEB SCH ×2 (10:41→23:59)
[2016-10-13] MEDS ORDERED: ACETAMINOPHEN 650 mg PER 20 mL UD GT PRN (11:15)
[2016-10-13] MEDS ORDERED: MORPHINE SULF INJ 2 MG/ML SYRINGE 1ML IV PRN (11:15)
[2016-10-13] MEDS ORDERED: LORazepam 2MG/ML-1ML VIAL IV PRN (11:15)
[2016-10-13] MEDS: NUTREN GT SCH (17:00)
[2016-10-14 03:52] VITALS: BP 124/75
[2016-10-14] MEDS: InsuLIN REG 1unit/0.01ml Soln (100units/ml) SC SCH ×3 (06:00→22:00)
[2016-10-14 06:14] LABS: Basophils # (auto) 0 uL; Eosinophils # (auto) 0 uL; Hematocrit 33.7 % (36.0-46.0); Hemoglobin 10.6 g/dL (12.2-16.2); Lymphocytes # (auto) 0.8 uL; Lymphocytes % (auto) 12.3 % (10.0-50.0); Mean Corpuscular Hemoglobin 31.2 pg (28.0-32.0); Mean Corpuscular Hgb Conc. 31.6 g/dL (32.0-36.0); Mean Corpuscular Volume 98.7 fL (80.0-100.0); Mean Platelet Volume 11.6 fL (7.4-10.4); Monocytes # (auto) 0.9 uL; Monocytes % (auto) 13.2 % (0.0-12.0); Neutrophils # (auto) 4.8 uL; Neutrophils % (auto) 74.5 % (37.0-80.0); Platelet Count (auto) 225 10^3/uL (140-450); Red Cell Distribution Width 14.9 % (11.6-16.0); SUSPECT VIEW TRANSMISSION; White Blood Cell 6.4 10^3/uL (4.4-10.8)
[2016-10-14 06:49] LABS: Calcium 8.5 mg/dL (8.5-10.1); Potassium 3.7 mmol/L (3.5-5.1)
[2016-10-14 06:53] LABS: BUN/Creatinine Ratio 117.4
[2016-10-14] MEDS: ACCU-CHEK COMFORT CURVE STRIP VI SCH ×3 (06:59→22:00)
[2016-10-14] MEDS: methylPREDNISolone SOD SUCC 125 MG/2 ML VL IV SCH (06:59)
[2016-10-14] MEDS: MEROPENEM 500MG IVPB 100 ML IV SCH (06:59)
[2016-10-14 07:58] VITALS: BP 108/72
[2016-10-14] MEDS: LEVALBUTEROL HCL 1.25 MG/3 ML NEB NEB SCH ×2 (08:35→22:22)
[2016-10-14] MEDS: ACETYLCYSTEINE 10 %(100MG/ML) SOL 4ML NEB SCH ×2 (08:35→22:22)
[2016-10-14] MEDS: IPRATROPIUM BROM 0.5 MG/2.5ML INH SOL NEB SCH ×2 (08:35→22:22)
[2016-10-14] MEDS: TOBRAMYCIN 300 MG/5 ML NEB SOLN NEB SCH (08:35)
[2016-10-14] MEDS: BUDESONIDE (INHALATION) 0.5 MG/2 ML NEB NEB SCH ×2 (08:35→22:21)
[2016-10-14] MEDS: LEVOFLOXACIN 500MG 100 ML IV SCH (10:10)
[2016-10-14] MEDS: BACLOFEN 10 MG TAB PO SCH ×2 (10:10→23:11)
[2016-10-14] MEDS: ENOXAPARIN SOD 30 MG/0.3 ML SYRINGE SC SCH (10:10)
[2016-10-14 12:00] VITALS: BP 122/80
[2016-10-14 15:54] VITALS: BP 125/81
[2016-10-14] MEDS: NUTREN GT SCH (18:44)
[2016-10-15] VITALS: BP 116/60
[2016-10-15 04:00] VITALS: BP 122/86
[2016-10-15] MEDS: ACCU-CHEK COMFORT CURVE STRIP VI SCH ×3 (06:00→22:00)
[2016-10-15] MEDS: InsuLIN REG 1unit/0.01ml Soln (100units/ml) SC SCH ×3 (06:00→22:00)
[2016-10-15 08:00] VITALS: BP 124/67
[2016-10-15] MEDS: IPRATROPIUM BROM 0.5 MG/2.5ML INH SOL NEB SCH ×2 (09:47→22:02)
[2016-10-15] MEDS: ACETYLCYSTEINE 10 %(100MG/ML) SOL 4ML NEB SCH ×2 (09:47→22:02)
[2016-10-15] MEDS: LEVALBUTEROL HCL 1.25 MG/3 ML NEB NEB SCH ×2 (09:47→22:01)
[2016-10-15] MEDS: BUDESONIDE (INHALATION) 0.5 MG/2 ML NEB NEB SCH ×2 (10:14→22:02)
[2016-10-15] MEDS: TOBRAMYCIN 300 MG/5 ML NEB SOLN NEB SCH (10:22)
[2016-10-15] MEDS: LEVOFLOXACIN 500MG 100 ML IV SCH (10:26)
[2016-10-15] MEDS: BACLOFEN 10 MG TAB PO SCH ×2 (10:26→22:56)
[2016-10-15] MEDS: ENOXAPARIN SOD 30 MG/0.3 ML SYRINGE SC SCH (10:26)
[2016-10-15 11:52] VITALS: BP 116/70
[2016-10-15 15:17] LABS: Basophils # (auto) 0 uL; Basophils % (auto) 0.4 % (0.0-2.0); Eosinophils # (auto) 0 uL; Hemoglobin 11.7 g/dL (12.2-16.2); Lymphocytes # (auto) 1.6 uL; Lymphocytes % (auto) 16.7 % (10.0-50.0); Mean Corpuscular Hemoglobin 30.9 pg (28.0-32.0); Mean Corpuscular Hgb Conc. 30.8 g/dL (32.0-36.0); Mean Corpuscular Volume 100.3 fL (80.0-100.0); Mean Platelet Volume 10.6 fL (7.4-10.4); Monocytes # (auto) 1.3 uL; Monocytes % (auto) 13.9 % (0.0-12.0); Neutrophils # (auto) 6.5 uL; Platelet Count (auto) 301 10^3/uL (140-450); Red Cell Distribution Width 16.1 % (11.6-16.0); White Blood Cell 9.4 10^3/uL (4.4-10.8)
[2016-10-15 15:37] LABS: BUN/Creatinine Ratio 154.5; Calcium 8.5 mg/dL (8.5-10.1); Magnesium 2.8 mg/dL (1.6-2.6); Potassium 3.3 mmol/L (3.5-5.1)
[2016-10-15 16:00] VITALS: BP 113/66
[2016-10-15 20:00] VITALS: BP 119/91
[2016-10-15] MEDS ORDERED: POTASSIUM CHL 10% (20 MEQ/15ML) ORAL SOLN GT STA (22:20)
[2016-10-16] VITALS: BP 108/71
[2016-10-16 04:00] VITALS: BP 119/73
[2016-10-16] MEDS: ACCU-CHEK COMFORT CURVE STRIP VI SCH ×2 (06:00→14:00)
[2016-10-16] MEDS: InsuLIN REG 1unit/0.01ml Soln (100units/ml) SC SCH ×2 (06:00→14:00)
[2016-10-16 06:17] VITALS: BP 119/73
[2016-10-16] MEDS: IPRATROPIUM BROM 0.5 MG/2.5ML INH SOL NEB SCH (06:20)
[2016-10-16] MEDS: TOBRAMYCIN 300 MG/5 ML NEB SOLN NEB SCH (06:20)
[2016-10-16] MEDS: BUDESONIDE (INHALATION) 0.5 MG/2 ML NEB NEB SCH (06:21)
[2016-10-16] MEDS: ACETYLCYSTEINE 10 %(100MG/ML) SOL 4ML NEB SCH (06:21)
[2016-10-16] MEDS: LEVALBUTEROL HCL 1.25 MG/3 ML NEB NEB SCH (06:48)
[2016-10-16 08:06] VITALS: BP 120/68
[2016-10-16] MEDS: BACLOFEN 10 MG TAB PO SCH (10:03)
[2016-10-16] MEDS: LEVOFLOXACIN 500MG 100 ML IV SCH (10:03)
[2016-10-16] MEDS: ENOXAPARIN SOD 30 MG/0.3 ML SYRINGE SC SCH (10:03)
[2016-10-16] MEDS ORDERED: LEVO500T3 PO (11:23)
[2016-10-16] MEDS ORDERED: TOBI NEB (11:23)
[2016-10-16] MEDS ORDERED: SACC250C PO (11:23)
[2016-10-16 12:00] VITALS: BP 119/74
[2016-10-16 12:00] LABS: BUN/Creatinine Ratio 78.3; Calcium 8.7 mg/dL (8.5-10.1); Potassium 4.5 mmol/L (3.5-5.1)
[2016-10-16 13:58] VITALS: BP 120/81
[2016-10-16] MEDS ORDERED: ACETYLCYSTEINE 10 %(100MG/ML) SOL 4ML NEB SCH (22:00)
[2016-10-16] MEDS ORDERED: LEVALBUTEROL HCL 1.25 MG/3 ML NEB NEB SCH (22:00)
[2016-10-17] MEDS ORDERED: ENOXAPARIN SOD 40 MG/0.4 ML SYRINGE SC SCH (10:00)
[2016-10-17] MEDS ORDERED: ENOXAPARIN SOD 30 MG/0.3 ML SYRINGE SC SCH (10:00)
== END 2016-10-16 15:27 | disposition home health service (06) | DRG 720 ==
LOC: ER 11:48 → TELE 11:49 → ICU WEST 22:10 → DOU IN ICU 09-28 17:05
PROVIDERS: ADMIT Internal Medicine; ATTEND Internal Medicine
DX: A41.9 Sepsis, unspecified organism (principal); J96.21 Acute and chronic respiratory failure with hypoxia; J15.1 Pneumonia due to Pseudomonas; E87.0 Hyperosmolality and hypernatremia; Z93.0 Tracheostomy status; M41.9 Scoliosis, unspecified; G80.0 Spastic quadriplegic cerebral palsy; Z93.1 Gastrostomy status; Z99.81 Dependence on supplemental oxygen; J20.9 Acute bronchitis, unspecified; E66.9 Obesity, unspecified; Z66 Do not resuscitate; E87.6 Hypokalemia; H54.0 Blindness, both eyes; Z74.01 Bed confinement status; Z82.49 Family history of ischemic heart disease and other diseases of the circulatory system; Z87.820 Personal history of traumatic brain injury; Z98.890 Other specified postprocedural states; Z83.49 Family history of other endocrine, nutritional and metabolic diseases; Z88.1 Allergy status to other antibiotic agents; Z68.23 Body mass index [BMI] 23.0-23.9, adult
CPT/HCPCS: 31720; 36415; 36600; 51702; 71010; 71275; 80048; 80053; 80061; 81001; 82805; 82962; 83605; 83735; 83880; 84443; 85007; 85025; 85027; 85049; 85610; 85730; 87040; 87070; 87077; 87081; 87086; 87088; 87186; 87205; 87400; 93005; 93306; 94640; 94668; 96361; 96374; J0696; J1815; J1956; J2185; J2543; J3480

== ENCOUNTER 2018-09-24 10:41 | Inpatient (IN) | payer MEDICAID | END 2018-10-04 18:57 | disposition home or self-care (01) | LOC: ER 10:41 → DOU IN ICU 09-25 05:48 → OVERFLOW 14:07 | PROC: 5A1955Z Respiratory Ventilation, Greater than 96 Consecutive Hours (ICD-10-PCS; principal; ~2018-09-24) | DX: J96.21 Acute and chronic respiratory failure with hypoxia (principal); J69.0 Pneumonitis due to inhalation of food and vomit; J15.1 Pneumonia due to Pseudomonas; I50.31 Acute diastolic (congestive) heart failure; M41.9 Scoliosis, unspecified; Z93.1 Gastrostomy status; Z93.0 Tracheostomy status; R79.89 Other specified abnormal findings of blood chemistry; Z87.820 Personal history of traumatic brain injury; Z66 Do not resuscitate; G80.9 Cerebral palsy, unspecified; H54.7 Unspecified visual loss; N20.0 Calculus of kidney; N39.0 Urinary tract infection, site not specified; Z74.01 Bed confinement status; Z98.1 Arthrodesis status ==